=== PATIENT | female | born 1930 | race Two or more races ===

== ENCOUNTER 2022-03-17 20:50 | Inpatient (IN) | payer OTHER ==
[~2022-03-17] VITALS: Ht 162.6 cm; Wt 59.0 kg
[2022-03-17] MEDS ORDERED: SYNTHROID75 MCG PO (21:04)
[2022-03-17] MEDS ORDERED: CANDESARTAN CIL32 MG PO (21:04)
[2022-03-17] MEDS ORDERED: TOPROL XL25 M1 PO (21:04)
--- NOTE | 2022-03-17 21:05 | NUR ---
PTE ALERTA Y ORIENTADA X3. PTE REFIERE QUE TIENE NAUSEA, DOLOR DE EL, MAREO, DOLOR DE PECHO. SE REALIZAN V/S Y SE PRESENTA A DR. MCCURDY. SE UBICA A PTE EN TON CON MONITOR CARDIACO, OXIMETRIA DE PULSO.
--- NOTE | 2022-03-17 22:28 | NUR ---
SE LE ORIENTA A PTE SOBRE TRATAMIENTO A SEGUIR, ZEHRA REFIERE ENTENDER. SE LE COLECTA MUESTRAS MEREDITH ORDEN MEDICA.
[2022-03-20] MEDS ORDERED: CLONAZEPAM0.5 MG (10:52)
[2022-03-20] MEDS ORDERED: OFLOXACIN5 ML (10:52)
[2022-03-20] MEDS ORDERED: HYDROCHLOROTH12.5 MG (10:52)
[2022-03-20] MEDS ORDERED: PREDNISOLONE ACE5 ML (10:53)
== END 2022-03-20 16:56 | disposition home or self-care (01) | DRG 305 ==
LOC: ER 20:50 → MEDI 03-18 00:35
PROVIDERS: ADMIT Internal Medicine; ATTEND Internal Medicine
PROC: 4A12X4Z Monitoring of Cardiac Electrical Activity, External Approach (ICD-10-PCS; principal; 2022-03-17)
PROC: B24BYZZ Ultrasonography of Heart with Aorta using Other Contrast (ICD-10-PCS; 2022-03-18)
DX: I15.2 Hypertension secondary to endocrine disorders (principal); E87.1 Hypo-osmolality and hyponatremia; I16.9 Hypertensive crisis, unspecified; E46 Unspecified protein-calorie malnutrition; E03.9 Hypothyroidism, unspecified; I10 Essential (primary) hypertension; N28.9 Disorder of kidney and ureter, unspecified; R63.0 Anorexia